=== PATIENT | female | born 1980 | race Hispanic/Latino ===

== ENCOUNTER 2017-06-16 19:50 | Inpatient (IN) | payer OTHER, SELFPAY ==
[2017-06-16] MEDS ORDERED: Acetaminophen 500 MG TAB ONE (20:35)
[2017-06-16] MEDS ORDERED: Oseltamivir 75 MG CAP PO SCH (20:45)
[2017-06-16] MEDS ORDERED: Ondansetron HCl/PF 4 MG/2 ML Vial IVP PRN (22:03)
[2017-06-16] MEDS ORDERED: Acetaminophen 325 MG TAB PO PRN (22:03)
[2017-06-16] MEDS ORDERED: Guaifenesin DM 100-10/5 ML UDCUP PO PRN (22:03)
[2017-06-16 23:05] VITALS: BMI 36.5
--- NOTE | 2017-06-17 01:39 | HP ---
DATE OF ADMISSION: 06/16/2017 ADMITTING PHYSICIAN: Dr. Jay Neri. PRIMARY CARE PHYSICIAN: None. This is a city call. CHIEF COMPLAINT: Cough, fever, chills, weakness. HISTORY OF PRESENT ILLNESS: The patient is a difficult historian because she does not speak [place]. Her is at bedside and he does not speak [place]. The report from the emergency room is len t the patient approximately 3-4 days ago began to experiencing cough, diarrhea. She does report that she had a fever of approximately 102 degrees. She does report that one of her children has also bee n sick. She denies any recent travel. Denies history of diabetes or hypertension. She was hypotens lópez when she was brought in by EMS. She was given 3 liters of fluid and still remained hypotensive. REVIEW OF SYSTEMS: The following complete review of systems was negative, unless otherwise mentioned in the HPI or below: Constitutional: Weight loss or gain, sense of well-being, ability to conduct usual activities, exercise tolerance. Skin/Breast: Rash, itching, changes in hair growth or loss, n ail changes, breast lumps, tenderness, swelling, nipple discharge. Eyes: Vision, double vision, tea ring, blind spots, pain. ENT/Mouth: Headaches (location, time of onset, duration, precipitating fac tors), vertigo, lightheadedness, injury. Vision, double vision, tearing, blind spots, pain, nose blee ding, colds, obstruction, discharge, dental difficulties, gingival bleeding, dentures, neck stiffness , pain, tenderness, masses in thyroid or other areas. Cardiovascular: Precordial pain, substernal d istress, palpitations, syncope, dyspnea on exertion, orthopnea, nocturnal paroxysmal dyspnea, edema, cyanosis, hypertension, heart murmurs, varicosities, phlebitis, claudication. Respiratory: Pain, sh ortness of breath, wheezing, stridor, cough, hemoptysis, fever or night sweats Gastrointestinal: Poo r appetite, dysphagia, indigestion, abdominal pain, heartburn, eructation, nausea, vomiting, hemateme sis, jaundice, constipation, or diarrhea, abnormal stools (johanna-colored, tarry, bloody, greasy, foul smelling), flatulence, hemorrhoids, recent changes in bowel habits. Genitourinary: Urgency, frequen cy, dysuria, nocturia, hematuria, polyuria, oliguria, unusual (or change in) color of urine, stones, hesitancy, change in size of stream, dribbling, acute retention or incontinence, libido, potency. Mu sculoskeletal: Pain, swelling, redness or heat of muscles or joints, limitation, of motion, muscular weakness, atrophy, cramps. Neurologic/Psychiatric: Convulsions, paralyses, tremor, incoordination, parasthesias, difficulties with memory of speech, sensory or motor disturbances, or muscular coordin ation (ataxia, tremor), emotional problems, anxiety, depression, previous psychiatric care, unusual p erceptions, hallucinations. Allergy/Immunologic: Skin rash, anemia, bleeding tendency, polydipsia, polyuria, intolerance to heat or cold. PAST MEDICAL HISTORY: None. PAST SURGICAL HISTORY: section. PSYCHIATRIC HISTORY: None. SOCIAL HISTORY: Denies alcohol, illicit drug use, or smoking. FAMILY HISTORY: Reviewed and noncontributory to this case. HOME MEDICATIONS: None. DRUG ALLERGIES: She does have a possible LATEX allergy, but no drug allergies. PHYSICAL EXAMINATION: GENERAL: Upon my interview, she was nontoxic appearing, calm, and cooperative. VITAL SIGNS: Blood pressure 102/58, pulse 102, respirations 22, temperature 99.1. Pain 6/10, sattin g 97% on room air. HEAD: Normocephalic, atraumatic. EYES: PERRL. Extraocular muscles intact. ENT: Normal external nose exam, ear exam, pharynx appear normal. Mucous membranes pink and moist. NECK: Supple. Trachea midline. Normal range of motion. CHEST: Breath sounds are somewhat diminished in the right lower lobe, otherwise clear to auscultatio n. CARDIOVASCULAR: Sinus tachycardia with equal pulses. ABDOMEN: Nontender, nondistended. No rebound, no guarding. EXTREMITIES: No clubbing, cyanosis or edema. NEUROLOGIC: Full range of motion of all extremities. Alert and oriented x3. LABORATORY DATA AND IMAGING: All labs were performed at outside facility, but reportedly she has a w herman count of 12. We will incorporate these into our computer system. ASSESSMENT AND PLAN: 1. Community-acquired pneumonia. 2. Influenza A and B infection. 3. Sepsis. 4. Anemia. PLAN: Patient will be admitted to [facility]. We will administer Rocephin as well as azithromycin for juan terial pneumonia. We will continue Tamiflu 75 mg b.i.d. for viral infection. We will provide suppor tive treatment as needed including fluid resuscitation and transfusion as needed. The patient will b e placed on droplet precautions. Venous thromboembolism prophylaxis will be via SCD devices.
[2017-06-17 05:26] LABS: #Basophils 0.1 thou/uL (0.0-0.2); #Lymphocytes 1.6 thou/uL (1.20-3.40); #Monocytes 0.6 thou/uL (0.11-0.59); #Neutrophils 8.6 thou/uL (1.40-6.50); %Basophils 0.5 % (0.0-1.0); %Eosinophils 0.1 % (0.0-10.0); %Monocytes 5.3 % (0.0-10.0); Hemoglobin 8.5 g/dL (12.0-16.0); Mean Corpuscular HGB CONC 31.1 g/dL (32.0-36.0); Mean Corpuscular Hemoglobin 23.6 pg (27.0-31.0); Mean Corpuscular Volume 75.8 fl (81.0-99.0); Mean Platelet Volume 8.7 fL (7.4-10.4); Platelet Count 179 thou/uL (130-400); RBC Distribution Width 14.6 % (11.5-14.5); White Blood Cell (WBC) Count 10.8 thou/uL (4.8-10.8)
[2017-06-17 05:40] LABS: Anion Gap 11 mmol/L (10-20); BUN (Urea Nitrogen) 5 mg/dL (7.0-18.7); Calc. Creatinine Clearance 138 mL/min (70-130); Calcium 8.2 mg/dL (7.8-10.44); Carbon Dioxide 19 mmol/L (22-29); Chloride 111 mmol/L (98-107); Estimated GFR-MDRD Greater than 90; Glucose 122 mg/dL (70-105); Potassium 3.5 mmol/L (3.5-5.1); Sodium 137 mmol/L (136-145)
[2017-06-17] MEDS ORDERED: Azithromycin 500 MG in Sodium Chloride 0.9% 250 ML 250 ML IVPB SCH ×2 (08:00→18:00)
[2017-06-17] MEDS ORDERED: FLU VACC QS2017-18 36 mo. & older 0.5 ML SYRINGE IM ONE (09:00)
[2017-06-17] MEDS ORDERED: Oseltamivir 75 MG CAP PO SCH (09:00)
[2017-06-17] MEDS ORDERED: cefTRIAXone\\ROCEPHIN 1 GM, Syringe 0.4 ML in Sterile Water 9.6 ML SLOW IVP SCH ×2 (10:00→17:00)
[2017-06-17] MEDS ORDERED: cefTRIAXone\\ROCEPHIN 1 GM in Sodium Chloride 0.9% 100 ML IVPB SCH (10:00)
[2017-06-17 11:12] VITALS: BP 103/68; TEMP 98.2
--- NOTE | 2017-06-17 13:25 | CON ---
DATE OF SERVICE: 06/17/2017 SERVICE: Pulmonary Medicine REASON FOR CONSULTATION: [facility] patient. HISTORY OF PRESENT ILLNESS: Patient is a 36-year-old female with past medical history significant for essentially nothing. She was in her usual state of health when she started having fevers, cough, and weakness. She presented to the Emergency Department. She was tucked into the [facility] overnight because of marginal blood pressures. That being said, they firmed up very nicely in this morning, she indicates that she feels a little bit better. She currently denies any fevers, chills, nausea or vomiting. She is coughing, but not bringing up any sputum at this time. She has been able to get up out of bed and walk around the room without significant difficulties. She remains on room air. She did get a total of 3 liters of fluid previously. PAST MEDICAL HISTORY: None. PAST SURGICAL HISTORY: section. SOCIAL HISTORY: Negative for alcohol, tobacco or illicit drug use. She has no exposure to chemicals, dust or asbestos. She does not have any known exposure to tuberculosis. FAMILY HISTORY: Noncontributory. ALLERGIES: No known drug allergies. MEDICATIONS: List of her inpatient medications was reviewed. No specific updates were made at this time. REVIEW OF SYSTEMS: General, head, ears, eyes, nose, throat, cardiovascular, respiratory, GI, , musculoskeletal, neurologic and skin is negative except as stated in the HPI. PHYSICAL EXAMINATION: VITAL SIGNS: Afebrile. Pulse 90, blood pressure 103/68, respirations 16, and saturation 99% on room air. GENERAL: Patient is awake, alert, in no apparent distress. LUNGS: Decent air entry. There are dependent crackles, which are minimal. No prolonged expiratory phase or wheezing is appreciated. HEART: Normal rate, regular. ABDOMEN: Soft, nontender, nondistended. Bowel sounds are positive. MUSCULOSKELETAL: No cyanosis or clubbing. There is no pitting in the bilateral lower extremities. NEUROLOGIC: Grossly nonfocal. LABORATORY DATA: WBC 10.8, hemoglobin 8.5. Platelets 179,000. Basic metabolic profile is essentially unremarkable. Lactate is negative. Potassium 3.5. IMAGING: Infiltrate in the right midlung zone. It may be in the superior segment of the right lower lobe, or lateral segment of the right middle lobe. ASSESSMENT: Community-acquired pneumonia secondary to influenza. DISCUSSION AND PLAN: At this point, the patient has demonstrated significant stability. As such, she can be considered for transfer to floor or even discharged home. I would complete a full outpatient course of Levaquin and Tamiflu. She needs a chest x-ray in 4-6 weeks in the outpatient setting to verify the infiltrate resolves. If she remains inhouse, Pulmonary will continue to follow. 70 minutes have been devoted to this patient in various activities. I personally reviewed all imaging studies and laboratory data noted within this document. For at least half of this time, I was interacting with the patient at bedside or coordinating care with the care team. For the remainder of the time, I was immediately available to the patient in the hospital unit. YISSEL
--- NOTE | 2017-06-17 14:49 | DIS ---
DATE OF ADMISSION: 06/16/2017 DATE OF DISCHARGE: 06/17/2017 PRIMARY CARE PHYSICIAN: None. DISCHARGE DIAGNOSES: 1. Influenza A. 2. Influenza B. 3. Sepsis. 4. Right middle lobe community-acquired pneumonia. CONSULTATIONS: None. PROCEDURES: None. HISTORY OF PRESENT ILLNESS: Ms. Cid is a 36-year-old female who [facility] with shortness of breath. There, she was found to have tachypnea, normal oxygen saturations, slightly elevated white blood cell count, some tachycardia and cough. Lactic acid was normal at 0.7. She was subsequently transferred here for admission for sepsis. HOSPITAL COURSE: The patient was seen and examined and was placed in the IMCU by Dr. Daron kelly t, by this morning, her white count normalized. She was still on room air, heart rate and respirator y rate were normal, and she had tolerated her Rocephin, azithromycin and Tamiflu without any difficul ties. She was converted to p.o. medications and discharged home in stable condition. PHYSICAL EXAMINATION: The patient was seen and examined on the day of discharge. Discharge plan and disposition was discussed with the patient and her [id number] at the bedside. DISCHARGE MEDICATIONS: 1. Levofloxacin 500 mg p.o. daily for 7 more days. 2. Tamiflu 75 mg p.o. b.i.d. for 5 days, 10 doses total. FOLLOWUP APPOINTMENTS: The patient needs to establish primary care. DISCHARGE ACTIVITY: Per cardiopulmonary limits. DISCHARGE DIET: Regular. DISCHARGE CONDITION: Stable. DISPOSITION: Discharged home via private vehicle.
--- NOTE | 2017-07-30 14:21 | EKG ---
Test Reason : TACHYCARDIC Blood Pressure : / mmHG Vent. Rate : 105 BPM Atrial Rate : 105 BPM P-R Int : 138 ms QRS Dur : 088 ms QT Int : 366 ms P-R-T Axes : 058 021 016 degrees QTc Int : 483 ms Sinus tachycardia Cannot rule out Anterior infarct , age undetermined Abnormal ECG Confirmed by TAMIKO Taylor, SUNIL ([id number]), mapping editor DYLON NATH ([id number]) on 07/30/2017 2:20:47 PM Referred By: Confirmed By:SUNIL MORRISON M.D.
== END 2017-06-17 12:58 | disposition home or self-care (01) | DRG 871 ==
LOC: ERS 19:50 → IMCU/EMU 20:50
PROVIDERS: ADMIT Internal Medicine Addiction Medicine; ATTEND Internal Medicine Addiction Medicine
DX: A41.9 Sepsis, unspecified organism (principal); J10.08 Influenza due to other identified influenza virus with other specified pneumonia; J15.9 Unspecified bacterial pneumonia; D64.9 Anemia, unspecified
CPT/HCPCS: 36415; 80048; 83605; 85025; 93005; A4216; J0456; J0696; J7050